=== PATIENT | male | born 1985 | race Two or more races ===

== ENCOUNTER 2018-04-01 12:11 | Emergency (ER) | payer MEDICAID, OTHER ==
[~2018-04-01] VITALS: Ht 172.7 cm; Wt 81.6 kg
[2018-04-01 13:27] VITALS: BP 114/69
[2018-04-01] MEDS ORDERED: cefTRIAXone SODIUM 250 MG VL IM ONE (13:45)
[2018-04-01] MEDS ORDERED: AZITHROMYCIN 250 MG TAB PO ONE (13:45)
[2018-04-01] MEDS ORDERED: LIDOCAINE 1% HCL (LOCAL ANESTH.) INJ 20ML MDV ONE (13:52)
== END 2018-04-01 14:16 | disposition home or self-care (01) ==
LOC: ER 12:11
DX: R36.9 Urethral discharge, unspecified (principal)
CPT/HCPCS: 96372; 99283; J0696; J2001